=== PATIENT | male | born 1950 | race Caucasian/White ===

== ENCOUNTER 2018-10-26 13:26 | Inpatient (IN) | payer BC, OTHER ==
[2018-10-26 13:32] VITALS: BMI 26.6
--- NOTE | 2018-10-26 13:47 | PDOC ---
History of Present Illness - General Chief Complaint: Pain, Acute Stated Complaint: ABDOMINAL PAIN Time Seen by Provider: 10/26/18 13:46 History Source: Patient Exam Limitations: No Limitations Past History - Past Medical History Allergies/Adverse Reactions: Allergies Allergy/AdvReac Type Severity Reaction Status Date / Time No Known Allergies Allergy Verified 10/26/18 13:29 Home Medications: Ambulatory Orders Nebivolol HCl [Bystolic] 10 mg PO DAILY 10/26/18 Simvastatin 5 mg PO DAILY 10/26/18 COPD: No Diabetes: Yes (PRE- DIABETIC) HTN: Yes Hypercholesterolemia: Yes - Immunization History Immunization Up to Date: Yes - Suicide/Smoking/Psychosocial Hx Smoking History: Never smoked Hx Alcohol Use: No Drug/Substance Use Hx: No *Physical Exam - Vital Signs Last Vital Signs Temp Pulse Resp BP Pulse Ox 98.2 F 97 H 17 145/91 98 10/26/18 13:30 10/26/18 13:30 10/26/18 13:30 10/26/18 13:30 10/26/18 13:30 Moderate Sedation - Procedure Monitoring Vital Signs: Procedure Monitoring Vital Signs Temperature 98.2 F 10/26/18 13:30 Pulse Rate 97 H 10/26/18 13:30 Respiratory Rate 17 10/26/18 13:30 Blood Pressure 145/91 10/26/18 13:30 O2 Sat by Pulse Oximetry (%) 98 10/26/18 13:30 ED Treatment Course - LABORATORY CBC & Chemistry Diagram: 10/26/18 14:39 10/26/18 14:39 Medical Decision Making - Medical Decision Making Pt was seen at bedside, also will be seen by attending Dr. Lopez. Pt presenting with epigastric pain x5 days. Pt states the pain is a burning sensation that has been fairly constant, and is sometimes sharp. The pain is non -radiating, and is not associated with nausea, vomiting, or diaphoresis. The pt has not been able to eat and has had minimal PO fluid intake, for fear of pain and nausea. Pt states prior to the pain, he did eat a spicy dinner and had a glass of alcohol. He has had reflux and "ulcers" in the past (no endoscopy ever done), but the pain was relieved with bowel rest and OTC PPIs. The pt went to Urgent Care 2 days ago, and was told to take OTC prilosec and avoid spicy foods. The pt has had to lie upright at night, and has not been able to sleep last night. Pt denies any fevers/chills, headache, vision changes, syncope, chest pain, palpitations, SOB, nausea/vomiting, urinary symptoms, diarrhea/ constipation, or leg swelling. Vitals stable, pt afebrile. Pt in NAD, normal body habitus. PE showed pt alert and oriented. manager latin generally intact, muscular strength and sensation intact. Oropharynx without erythema or exudates. No nasal congestion, hearing intact. Clear heart sounds, S1/S2, no JVD, b/l pedal edema, or heart murmur. Clear lung sounds, no respiratory distress, wheezes, crackles, accessory muscle use, or respiratory distress. Abdominal tenderness noted in the epigastric area only, no CVA tenderness to palpation, no rebound, no guarding. Abdomen soft, non- distended, and with normoactive bowel sounds. Skin without jaundice or rash. Considering acid reflux/gastritis vs ulcers/esophagitis (gastric vs duodenal) vs cholecystitis vs pancreatitis vs ACS Ordered work-up including CBC, CMP, Mg, lipase,. Provided [interventions/meds] for improvement of [pain/symptom control]. Will continue to reassess pt and monitor for symptomatic improvement. ECG: NSR, intervals WNL. No TWIs or significant ST segment changes. No significant changes from prior ECG. 10/26/18 14:31 Pt stated pain initially improved, but now persists. Provided 40 mg IV protonix. Pt had increased WBC (15.2). Added UA and chest x-ray. Bedside US (performed with Dr. Lopez): Pt was taken to abdomen US (r/o obstructing stone). Pt will go to abd/pelvis CT with IV contrast after US. 10/26/18 18:30 CT abd/pelvis: cholecystitis, with a stone at the neck of the gallbladder. GB wall thickened. Upper pole cyst R kidney. No urinary or GI tract obstruction. US: fatty infiltration of liver. GB wall thickening. GB sludge. CBD nondilated. Dr. Hdez (general surgery) consulted. Suggested admission, NPO, and antibiotics. Covering pt with 4.5 mg IV zosyn for antibiotic coverage. Providing 2 mg IV morphine for pain. Pt was admitted to hospitalist team (med/sug -- Dr. Bhatia). Will reassess for pain and comfort. 10/26/18 19:37 *DC/Admit/Observation/Transfer Diagnosis at time of Disposition: Cholecystitis - Discharge Dispostion Condition at time of disposition: Stable Decision to Admit order: Yes - Referrals - Patient Instructions - Post Discharge Activity
[2018-10-26] MEDS ORDERED: SODIUM CHLORIDE 1,000 ML IV STA (14:15)
[2018-10-26] MEDS ORDERED: ACETAMINOPHEN 1000 MG/100 ML VIAL (NON FORMULARY) IVPB ONE (14:15)
[2018-10-26] MEDS ORDERED: FAMOTIDINE 20 MG/50 ML IVPB 20 MG/50 ML MG IVPB ONE ×2 (14:15→14:21)
[2018-10-26] MEDS ORDERED: LIDOCAINE VISCOUS 2% ORAL/TOP 20 ML UNIT-DOSE CUP MM ONE (14:15)
[2018-10-26] MEDS ORDERED: MAG HYDROX/AL HYDROX/SIMETH 30 ML UNIT-DOSE CUP PO ONE (14:15)
[2018-10-26] MEDS ORDERED: MAG HYDROX/AL HYDROX/SIMETH 30 ML UNIT-DOSE CUP ONE (14:21)
[2018-10-26] MEDS ORDERED: ACETAMINOPHEN INJECTION 100 ML IVPB ONE (14:21)
[2018-10-26 14:51] LABS: BASO % 0.5 % (0-2.0); HEMATOCRIT 44.8 % (35.4-49); HEMOGLOBIN 15.3 GM/dL (11.7-16.9); LYMPH % 3.7 % (8-40); MCH 29.5 pg (25.7-33.7); MCHC 34.2 g/dl (32.0-35.9); MEAN CELL VOLUME 86.3 fl (80-96); MEAN PLT VOLUME 8.9 fl (7.5-11.1); MONO % 9.7 % (3.8-10.2); NEUT % 86.1 % (42.8-82.8); PLATELET COUNT 209 K/MM3 (134-434); RBC 5.19 M/mm3 (4.00-5.60); RDW 12.7 % (11.9-15.9); WHITE BLOOD COUNT 15.2 K/mm3 (4.0-10.0)
[2018-10-26 15:14] LABS: ALK PHOS 81 U/L (45-117); ANION GAP 5 MMOL/L (8-16); BILIRUBIN,TOTAL 1.7 mg/dL (0.2-1); BLOOD UREA NITROGEN 16 mg/dL (7-18); CALCIUM 9.3 mg/dL (8.5-10.1); CHLORIDE 99 mmol/L (98-107); CO2 31 mmol/L (21-32); GLUCOSE,RANDOM 136 mg/dL (74-106); SGOT/AST 23 U/L (15-37); SGPT/ALT 21 U/L (13-61); SODIUM 135 mmol/L (136-145); TOT PROT 7.1 g/dl (6.4-8.2)
[2018-10-26 15:24] LABS: INR 1.11 (0.83-1.09); PROTHROMBIN TIME (PATIENT) 13.1 SEC (9.7-13.0)
[2018-10-26] MEDS ORDERED: PANTOPRAZOLE SODIUM 40 MG VIAL IVPUSH ONE (15:34)
[2018-10-26 15:40] LABS: URINE APPEARANCE CLEAR; URINE BILIRUBIN NEGATIVE (<2.0 mg/dL); URINE COLOR YELLOW; URINE GLUCOSE (UA) NEGATIVE (NEGATIVE); URINE KETONE TRACE (NEGATIVE); URINE LEUK ESTERASE NEGATIVE (NEGATIVE); URINE NITRITE NEGATIVE (NEGATIVE); URINE PROTEIN 2+ (NEGATIVE)
[2018-10-26] MEDS ORDERED: PANTOPRAZOLE SODIUM 40 MG/100 ML BAG IVPB ONE (15:44)
[2018-10-26 16:36] LABS: URINE MUCUS RARE
--- NOTE | 2018-10-26 16:37 | PDOC ---
Attending Attestation - Resident Resident Name: KokoFelecia - ED Attending Attestation I have performed the following: I have examined & evaluated the patient, The case was reviewed & discussed with the resident, I agree w/resident's findings & plan, Exceptions are as noted - Medical Decision Making 10/26/18 17:55 68 yo male with h/o htn, hyperlipidemia, here with 3 - 4 days of epigastric pain. described as burning with occasional sharp component. was seen at urgent care few days ago given protonix, no improvement. denies fever, does have chills. nausea, no vomiting. no known ho stones. no change to urine or diarreha. on exam pt with mild epigastric ruq ttp. no rebound no guarding neg carroll's sign differential: gastritis, pancreatitis. atypical angina, cholecystitis, cholelithiasis. plan labs ekg lipase, bedside us ruq, focused ED ultrasound RUQ performed, indication ruq pain gb scanned in two planes. two stones noted, one impacted in neck gb. cbd not visualized. noted pericholecystic fluid . wall edema, mild wall thickening 4.1 mm neg sonographic carroll's sign impression: pericholecystic fluid, wall edema and upper limits normal, early cholecystitis vs other causes of wall edema such as liver disease considered. bilateral renal scanned, incidental right renal cyst measuring 4x [address] a/p as pt also has hematuria. fu ct ordered. bili elevated. wbc elevated at 15, ua with hematuria. renal function normal. lipase normal. 10/26/18 18:01 10/26/18 18:03 10/26/18 18:51 surgery consulted for cholecystitis, awaiting radiology us read but concerns for cholecysitits. left message for dr mendoza and pag service. given nikkosyn will admit pt to medicine. <Leola Lopez - Last Filed: 10/26/18 18:51> - HPI HPI: 10/26/18 16:37 The patient is a 68 year old male with past medical history HTN, HLD, and Hernia repair (when the patient was a kid) presents to the emergency department with epigastric pain. The patient presents with several days of severe localized , constant epigastric pain, thats burning in quality, since earlier this week. The patient reports the pain presented after having spicy food and alcohol. The patient denies any modifying factor that alleviates or aggravated the pain. The patient reports secondary to the pain, the patient sleep up right at night. The patient reports following up at an , was seen by Dr. Bucio, who prescribed the patient protonix. The patient reports being compliant, without relief. Denies fever, chills, nausea, vomiting, hematemesis, dysuria, hematuria, diarrhea, constipation. Allergies: NKA Social history: Alcohol use. No tobacco use reported. No drug use reported Surgical history: Hernia repair. PCP: Dr. Bucio. - Medical Decision Making 10/26/18 16:37 Documentation prepared by Jayne Prieto, acting as medical office receptionist assistant for Leola Lopez MD. 10/26/18 18:43 Phone call: Call placed to Dr. Mendoza (inspector [employer] for Surgery, [phone]), left a voicemail, waiting for a call back. 10/26/18 18:[address] Mendoza's office, spoke with the service, waiting for a call back. 10/26/18 18:[address] Mendoza. <Jayne Prieto - Last Filed: 10/26/18 18:55> Heart Score/ECG Review #1 General ECG Interpretation: Sinus Rhythm, Normal Rate, Normal Intervals, No acute ischemic changes (TWI III, AVF) <Leola Lopez - Last Filed: 10/26/18 18:51>
[2018-10-26] MEDS ORDERED: SODIUM CHLORIDE 0.9% 1000 ML INFUS.BAG IV ONE (18:41)
[2018-10-26] MEDS ORDERED: PIPERACILLIN/TAZOB 4.5 GM 4.5 GM in DEXTROSE 5%-WATER 100 ML IVPB ONE (19:19)
[2018-10-26] MEDS ORDERED: morphine CARPU-JECT 2 MG/1 ML DISP.SYRIN IVPUSH PRN (19:21)
[2018-10-26] MEDS ORDERED: PIPERACILLIN/TAZOB 4.5 GM 4.5 GM/100 ML BAG IVPB ONE (19:36)
[2018-10-26] MEDS: LACTATED RINGERS SOLUTION 1,000 ML IV SCH (19:47)
[2018-10-26] MEDS ORDERED: IBUPROFEN 600 MG TABLET (FP) PO PRN (20:00)
[2018-10-26] MEDS ORDERED: IBUPROFEN 600 MG TABLET (FP) PO ONE (20:31)
[2018-10-26] MEDS ORDERED: ACETAMINOPHEN 325 MG TABLET (FP) ONE (20:35)
[2018-10-26] MEDS: ACETAMINOPHEN 325 MG TABLET (FP) PO PRN (20:39)
--- NOTE | 2018-10-26 20:47 | HP ---
CHIEF COMPLAINT: epigastric abdominal pain PCP: not on service HISTORY OF PRESENT ILLNESS: 68 year old male with a hx of hyperlipidemia and hypertension presents to the hospital for 4 days of epigastric pain. Patient reports the pain began suddenly on Sunday and gradually became worse. Rates the pain as a stabbing pain in the mid to right epigastrum that does not radiate. Is not associated with food. Denies ever having that pain before. States that he went to urgent care, was given protonix for an "ulcer", which did not make him feel any better. Denies chest pain, SOB, nausea, vomiting, diarrhea, fevers, chills. ER course was notable for: (1) CT + acute cholecystitis (2) US done (3) PAST MEDICAL HISTORY: hyperlipidemia, hypertension PAST SURGICAL HISTORY: hernia repair when patient was 7 Social History: Smoking: never Alcohol: never Drugs: never Family History: breast CA in mother, lung CA in father Allergies No Known Allergies Allergy (Verified 10/26/18 13:29) HOME MEDICATIONS: Home Medications Medication Instructions Recorded Nebivolol HCl [Bystolic] 10 mg PO DAILY 10/26/18 Simvastatin 5 mg PO DAILY 10/26/18 REVIEW OF SYSTEMS CONSTITUTIONAL: Absent: fever, chills, diaphoresis, generalized weakness, malaise, loss of appetite, weight change HEENT: Absent: rhinorrhea, nasal congestion, throat pain, throat swelling, difficulty swallowing, mouth swelling, ear pain, eye pain, visual changes CARDIOVASCULAR: Absent: chest pain, syncope, palpitations, irregular heart rate, lightheadedness , peripheral edema RESPIRATORY: Absent: cough, shortness of breath, dyspnea with exertion, orthopnea, wheezing, stridor, hemoptysis GASTROINTESTINAL: abdominal pain Absent: abdominal distension, nausea, vomiting, diarrhea, constipation, melena , hematochezia GENITOURINARY: Absent: dysuria, frequency, urgency, hesitancy, hematuria, flank pain, genital pain MUSCULOSKELETAL: Absent: myalgia, arthralgia, joint swelling, back pain, neck pain SKIN: Absent: rash, itching, pallor HEMATOLOGIC/IMMUNOLOGIC: Absent: easy bleeding, easy bruising, lymphadenopathy, frequent infections ENDOCRINE: Absent: unexplained weight gain, unexplained weight loss, heat intolerance, cold intolerance NEUROLOGIC: Absent: headache, focal weakness or paresthesias, dizziness, unsteady gait, seizure, mental status changes, bladder or bowel incontinence PSYCHIATRIC: Absent: anxiety, depression, suicidal or homicidal ideation, hallucinations. PHYSICAL EXAMINATION Vital Signs - 24 hr 10/26/18 13:30 Temperature 98.2 F Pulse Rate 97 H Respiratory 17 Rate Blood Pressure 145/91 O2 Sat by Pulse 98 Oximetry (%) GENERAL: A&Ox3, no acute distress EYES: PERRLA, EOMI ENT: Moist mucus membranes NECK: No JVD LUNGS: CTA, no wheezes HEART: RRR, no murmurs ABDOMEN: Soft, BS present, tender to palpation in the RUQ and RLQ, carroll sign + MUSCULOSKELETAL: No CVA Tenderness EXTREMITIES: 2+ pulses, no edema. NEUROLOGICAL: Cranial nerves II-XII intact. Laboratory Results - last 24 hr 10/26/18 10/26/18 10/26/18 14:39 14:39 14:39 WBC 15.2 H RBC 5.19 Hgb 15.3 Hct 44.8 MCV 86.3 MCH 29.5 MCHC 34.2 RDW 12.7 Plt Count 209 MPV 8.9 Absolute Neuts (auto) 13.1 H Neutrophils % 86.1 H Lymphocytes % 3.7 L Monocytes % 9.7 Eosinophils % 0.0 Basophils % 0.5 Nucleated RBC % 0 PT with INR 13.10 H INR 1.11 H Sodium 135 L Potassium 4.0 Chloride 99 Carbon Dioxide 31 Anion Gap 5 L BUN 16 Creatinine 1.0 Creat Clearance w eGFR > 60 Random Glucose 136 H Calcium 9.3 Magnesium Total Bilirubin 1.7 H AST 23 ALT 21 Alkaline Phosphatase 81 Troponin I Total Protein 7.1 Albumin 4.0 Lipase Urine Color Urine Appearance Urine pH Ur Specific Delight Urine Protein Urine Glucose (UA) Urine Ketones Urine Blood Urine Nitrite Urine Bilirubin Urine Urobilinogen Ur Leukocyte Esterase Urine WBC (Auto) Urine RBC (Auto) Urine Mucus 10/26/18 10/26/18 10/26/18 14:39 14:39 15:30 WBC RBC Hgb Hct MCV MCH MCHC RDW Plt Count MPV Absolute Neuts (auto) Neutrophils % Lymphocytes % Monocytes % Eosinophils % Basophils % Nucleated RBC % PT with INR INR Sodium Potassium Chloride Carbon Dioxide Anion Gap BUN Creatinine Creat Clearance w eGFR Random Glucose Calcium Magnesium 2.0 Total Bilirubin AST ALT Alkaline Phosphatase Troponin I < 0.02 Total Protein Albumin Lipase 173 Urine Color Yellow Urine Appearance Clear Urine pH 7.0 Ur Specific Delight 1.024 Urine Protein 2+ H Urine Glucose (UA) Negative Urine Ketones Trace H Urine Blood 2+ H Urine Nitrite Negative Urine Bilirubin Negative Urine Urobilinogen 2.0 Ur Leukocyte Esterase Negative Urine WBC (Auto) 2 Urine RBC (Auto) 137 Urine Mucus Rare ASSESSMENT/PLAN: 68 yr old male with a hx of HTN, HLD presents for 5 day hx of abdominal pain and is admitted for the treatment of acute cholecystitis #Abdominal pain: 2/2 acute cholecystitis -CT abd/pelvis shows gallstone and acute cholecystitis, renal cyst -US done -surgery consulted Dr. Hdez -keep NPO except meds -LR @ 100cc/hr -zosyn 3.375 q6 -tylenol/morphine for pain control #Hypertension: patient BP 145/91 -patient on nadolol at home but does not remember home dose, will confirm with [facility] in the morning #Hyperlipidemia: chronic -patient on simvastatin at home, does not remember dose and will need to confirm in AM #FEN -LR @ 100cc/hr -NPO except meds -lytes wnl, recheck in AM #Prophylaxis -SCDs for now pending surgery #Disposition -admit med surg, will be evaluated by surg in AM Visit type - Emergency Visit Emergency Visit: Yes ED Registration Date: 10/26/18 Care time: The patient presented to the Emergency Department on the above date and was hospitalized for further evaluation of their emergent condition. - New Patient This patient is new to me today: Yes Date on this admission: 10/26/18 - Critical Care Critical Care patient: No
--- NOTE | 2018-10-26 21:38 | PN ---
Teaching Attending Note Name of Resident: Puneet Calle ATTENDING PHYSICIAN STATEMENT I saw and evaluated the patient. I reviewed the resident's note and discussed the case with the resident. I agree with the resident's findings and plan as documented. SUBJECTIVE: Seen and examined; please see resident note for further hsitorical information. Patient has a history of HTN on bystolic HLD on simva presents with several days of abdominal pain associated with anorexia and nausea. Nothing makes it better or worse, hasn't happened before, no prior abdominal sgy. Leukocytosis seen on labs with elevated bili. Seen to have GB wall thickening with suspicion of cholecystitis. Dr. Hdez spoke with ER; I am told he recommended zosyn and admission to medicine; appreciate expert opinion. Hemodynamically stable and afebrile. 10 sys ROS done and negative aside from HPI PMH, PSH, FH, Social Hx per resident note; reviewed Medication reconciliation reviewed; reconciliation pending OBJECTIVE: VS, labs, imaging reviewed NAD, AAO, resting comfortably in bed RUQ pain to palpation with negative murphys and slight tympany RRR s1/2 no mgr Lungs CTAB w/ sym exp CN2-12 wnl, no fnd Normal mood, appropriate affect Prelim reports reviewed CT/US; suspect cholecystitis. Followup the final reports Negative lipase ASSESSMENT AND PLAN: Presents with abdominal pain and leukocytosis with elevated bili; found to have findings suspicious for cholecystitis on US/CT. Dr. Hdez following. 1) Acute Cholecystitis -Continue IVF, NPO, broad spectrum abx as rec'd; consult ID if needed -Surgical eval -Pain control -Followup cultures, serial abdominal exams. Would be noncomplicated cholecystitis. 2) Elevated Bilirubin -Fractionate; trend CMP. May be related to #1. 3) HTN -Hold PO meds; prn. Monitor for BB WD. 4) HLD -FU lipids as OP; resume statin when taking PO FENA -LR@75 -PRN replete -NPO -As tolerated Full Code
[2018-10-27] MEDS: PIPERACILLIN/TAZOB 3.375 GM 3.375 GM in DEXTROSE 5%-WATER - 50 ML IVPB SCH ×3 (04:00→15:54)
[2018-10-27] MEDS ORDERED: DEXTROSE 5%-WATER - 50 ML IVPB ONE ×3 (04:31→15:48)
[2018-10-27] MEDS ORDERED: PIPERACILLIN/TAZOBACTAM 3.375 GM VIAL IVPB ONE ×3 (04:31→15:48)
[2018-10-27] MEDS: MORPHINE SULFATE 2 MG/ML VIAL IVPUSH PRN ×3 (05:13→21:15)
[2018-10-27 07:05] LABS: HEMATOCRIT 38.8 % (35.4-49); HEMOGLOBIN 13.6 GM/dL (11.7-16.9); MEAN CELL VOLUME 85.6 fl (80-96); MEAN PLT VOLUME 9.8 fl (7.5-11.1); PLATELET COUNT 182 K/MM3 (134-434); RBC 4.54 M/mm3 (4.00-5.60); RDW 12.9 % (11.9-15.9); WHITE BLOOD COUNT 12.9 K/mm3 (4.0-10.0)
[2018-10-27 07:44] LABS: ALBUMIN 3.1 g/dl (3.4-5.0); ALK PHOS 64 U/L (45-117); ANION GAP 9 MMOL/L (8-16); BILIRUBIN,TOTAL 2.2 mg/dL (0.2-1); BLOOD UREA NITROGEN 14 mg/dL (7-18); CALCIUM 8.2 mg/dL (8.5-10.1); CHLORIDE 102 mmol/L (98-107); CO2 27 mmol/L (21-32); GLUCOSE,RANDOM 113 mg/dL (74-106); MAGNESIUM 1.9 mg/dL (1.8-2.4); PHOSPHOROUS 2.7 mg/dL (2.5-4.9); POTASSIUM 3.8 mmol/L (3.5-5.1); SGOT/AST 23 U/L (15-37); SGPT/ALT 18 U/L (13-61); SODIUM 138 mmol/L (136-145); TOT PROT 5.7 g/dl (6.4-8.2)
--- NOTE | 2018-10-27 11:20 | EKG ---
Test Reason : Blood Pressure : / mmHG Vent. Rate : 087 BPM Atrial Rate : 087 BPM P-R Int : 148 ms QRS Dur : 114 ms QT Int : 396 ms P-R-T Axes : 035 -37 -10 degrees QTc Int : 476 ms NORMAL SINUS RHYTHM LEFT AXIS DEVIATION MINIMAL VOLTAGE CRITERIA FOR LVH, MAY BE NORMAL VARIANT ABNORMAL ECG NO PREVIOUS ECGS AVAILABLE Confirmed by ASHLEIGH SHETH MD ([id number]) on 10/27/2018 11:20:24 AM Referred By: Confirmed By:ASHLEIGH SHETH MD
--- NOTE | 2018-10-27 11:44 | PN ---
Progress Note, Physician Chief Complaint: Mr Zayas complains of RUQ abdominal pain when taking deep breaths. No cp or sob. - Current Medication List Current Medications: Active Medications Acetaminophen (Tylenol -) 650 mg PO Q4H PRN PRN Reason: PAIN LEVEL 6-10 Last Admin: 10/26/18 20:39 Dose: 650 mg Lactated Ringer's (Lactated Ringers Solution) 1,000 mls @ 100 mls/hr IV ASDIR JUAN MANUEL Stop: 10/28/18 05:29 Last Admin: 10/26/18 19:47 Dose: 100 mls/hr Piperacillin Sod/Tazobactam (Sod 3.375 gm/ Dextrose) 50 mls @ 100 mls/hr IVPB Q6H-IV JUAN MANUEL; Protocol Stop: 10/27/18 15:29 Last Admin: 10/27/18 08:33 Dose: 100 mls/hr Piperacillin Sod/Tazobactam (Sod 3.375 gm/ Dextrose) 50 mls @ 100 mls/hr IVPB Q6H-IV JUAN MANUEL Morphine Sulfate (Morphine Sulfate) 2 mg IVPUSH Q4H PRN PRN Reason: PAIN LEVEL 7 - 10 Last Admin: 10/27/18 05:13 Dose: 2 mg - Objective Vital Signs: Vital Signs Temperature 37.2 C 10/27/18 06:00 Pulse Rate 98 H 10/27/18 06:00 Respiratory Rate 18 10/27/18 06:00 Blood Pressure 161/78 10/27/18 06:00 O2 Sat by Pulse Oximetry (%) 98 10/26/18 22:00 Constitutional: Yes: Well Nourished, No Distress, Calm Cardiovascular: Yes: Regular Rate and Rhythm. No: Gallop, Murmur, Rub Respiratory: Yes: Regular, CTA Bilaterally. No: Rales, Rhonchi, Wheezes Gastrointestinal: Yes: Soft, Hypoactive Bowel Sounds, Tenderness (RUQ). No: Distention Extremities: Yes: WNL Edema: No Labs: CBC, BMP 10/27/18 06:30 10/27/18 06:30 INR, PTT INR 1.11 (0.83-1.09) H 10/26/18 14:39 Problem List - Problems (1) Cholecystitis Assessment/Plan: -case d/w Dr Hdez -change zosyn to rocephin -plan for lap alexandru tomorrow -change LR to D5 1/2 NS with 40mEq KCl since now on rocephin Code(s): K81.9 - CHOLECYSTITIS, UNSPECIFIED (2) HTN (hypertension) Assessment/Plan: -currently npo -monitor -may need IV metoprolol or hydralazine if gets too high Code(s): I10 - ESSENTIAL (PRIMARY) HYPERTENSION (3) HLD (hyperlipidemia) Assessment/Plan: -can restart outpatient medication on discharge Code(s): E78.5 - HYPERLIPIDEMIA, UNSPECIFIED
--- NOTE | 2018-10-27 11:46 | CONSULT ---
- Consultation REQUESTING PROVIDER: Kenan HE CONSULT REQUEST: We have been asked to surgically evaluate this patient for nausea/vomiting and RUQ abdominal pain brought on after eating; he came for evaluation and w/u in the ER is c/w acute cholecystitis and cholelithiasis. PCP:Jean Grayson MD HISTORY OF PRESENT ILLNESS: As above; he has never had this before. PMHx: hypertension PSHx: none Home Medications Medication Instructions Recorded Nebivolol HCl [Bystolic] 10 mg PO DAILY 10/26/18 Simvastatin 5 mg PO DAILY 10/26/18 Allergies Allergy/AdvReac Type Severity Reaction Status Date / Time No Known Allergies Allergy Verified 10/26/18 13:29 PHYSICAL EXAM: GENERAL: Awake, alert, and fully oriented, in no acute distress. HEAD: Normal with no signs of trauma. EYES: sclera anicteric, conjunctiva clear. NECK: Normal ROM, supple without lymphadenopathy, JVD, or masses. ABDOMEN: Soft, tender in RUQ not distended, normoactive bowel sounds, voluntary guarding, no rebound, no masses. No organomegaly. No hernias MUSCULOSKELETAL: Normal ROM at all joints. No bony deformities or tenderness. No CVA tenderness. UPPER EXTREMITIES: 2+ pulses, warm, well-perfused. No cyanosis. Cap refill <2 seconds. No peripheral edema. LOWER EXTREMITIES: 2+ pulses, warm, well-perfused. No calf tenderness. No peripheral edema. NEUROLOGICAL: Normal speech, gait not observed. PSYCH: Cooperative. Good eye contact. Appropriate mood and affect. SKIN: Warm, dry, normal turgor, no rashes or lesions noted. Vital Signs Temperature 99.0 F 10/27/18 06:00 Pulse Rate 98 H 10/27/18 06:00 Respiratory Rate 18 10/27/18 06:00 Blood Pressure 161/78 10/27/18 06:00 O2 Sat by Pulse Oximetry (%) 98 10/26/18 22:00 Lab Results WBC 12.9 K/mm3 (4.0-10.0) H 10/27/18 06:30 RBC 4.54 M/mm3 (4.00-5.60) 10/27/18 06:30 Hgb 13.6 GM/dL (11.7-16.9) 10/27/18 06:30 Hct 38.8 % (35.4-49) 10/27/18 06:30 MCV 85.6 fl (80-96) 10/27/18 06:30 MCHC 35.0 g/dl (32.0-35.9) 10/27/18 06:30 RDW 12.9 % (11.9-15.9) 10/27/18 06:30 Plt Count 182 K/MM3 (134-434) 10/27/18 06:30 Sodium 138 mmol/L (136-145) 10/27/18 06:30 Potassium 3.8 mmol/L (3.5-5.1) 10/27/18 06:30 Chloride 102 mmol/L (98-107) 10/27/18 06:30 Carbon Dioxide 27 mmol/L (21-32) 10/27/18 06:30 Anion Gap 9 MMOL/L (8-16) 10/27/18 06:30 BUN 14 mg/dL (7-18) 10/27/18 06:30 Creatinine 1.0 mg/dL (0.55-1.3) 10/27/18 06:30 Random Glucose 113 mg/dL (74-106) H 10/27/18 06:30 Calcium 8.2 mg/dL (8.5-10.1) L 10/27/18 06:30 INR 1.11 (0.83-1.09) H 10/26/18 14:39 Imaging w/u to date reviewed and c/w acute cholecystitis/cholelithiasis IMP: acute cholecystitis/cholelithiasis PLAN: lap alexandru; possible open; r/b/t/a's d/w the patient includ/ing conversion to an open procedure and possible procedures for retained stones; bile duct injury and related; informed consent obtained; for OR 10/28/18. Javier Hdez MD FACS
[2018-10-27] MEDS: ACETAMINOPHEN 325 MG TABLET (FP) PO PRN (13:36)
[2018-10-27] MEDS: LACTATED RINGERS SOLUTION 1,000 ML IV SCH ×2 (15:55→21:15)
[2018-10-27] MEDS ORDERED: D5-1/2NS+40 MEQ KCL - 40 MEQ/1,000 ML INFUS.BAG IV SCH (18:15)
[2018-10-27] MEDS ORDERED: PIPERACILLIN/TAZOB 3.375 GM 3.375 GM in DEXTROSE 5%-WATER - 50 ML IVPB SCH (21:00)
[2018-10-28] MEDS: ACETAMINOPHEN 325 MG TABLET (FP) PO PRN (02:42)
[2018-10-28] MEDS ORDERED: fentaNYL CITRATE 250 MCG/5 ML VIAL ONE (07:54)
[2018-10-28] MEDS ORDERED: MIDAZOLAM HCL 2 MG/2 ML SINGLE DOSE VIAL ONE (07:55)
[2018-10-28] MEDS ORDERED: PROPOFOL 20 ML ONE (07:55)
[2018-10-28] MEDS ORDERED: SUCCINYLCHOLINE CHLORIDE 200 MG/10 ML VIAL ONE (07:55)
[2018-10-28] MEDS ORDERED: ROCURONIUM BROMIDE 50 MG/5 ML VIAL ONE (07:55)
[2018-10-28] MEDS ORDERED: LIDOCAINE HCL/PF 2% SDV 5ML VIAL ONE (08:01)
[2018-10-28] MEDS ORDERED: DEXAMETHASONE SOD PHOSPHATE 4 MG/1 ML VIAL ONE (08:01)
[2018-10-28 08:03] LABS: ALBUMIN 2.9 g/dl (3.4-5.0); ALK PHOS 74 U/L (45-117); ANION GAP 7 MMOL/L (8-16); BILIRUBIN,TOTAL 1.5 mg/dL (0.2-1); BLOOD UREA NITROGEN 14 mg/dL (7-18); CALCIUM 8.5 mg/dL (8.5-10.1); CHLORIDE 103 mmol/L (98-107); CO2 27 mmol/L (21-32); CREATININE 0.9 mg/dL (0.55-1.3); GLUCOSE,RANDOM 92 mg/dL (74-106); MAGNESIUM 2.3 mg/dL (1.8-2.4); PHOSPHOROUS 2.5 mg/dL (2.5-4.9); SGOT/AST 35 U/L (15-37); SGPT/ALT 22 U/L (13-61); SODIUM 137 mmol/L (136-145); TOT PROT 5.8 g/dl (6.4-8.2)
[2018-10-28] MEDS ORDERED: DESFLURANE GAS 240 ML BOTTLE IH ONE (08:04)
[2018-10-28] MEDS ORDERED: BUPIVACAINE HCL/PF 0.5% (5MG/ML) 10 ML VIAL ONE (08:07)
[2018-10-28 08:14] LABS: BASO % 0.5 % (0-2.0); EOS % 0.1 % (0-4.5); HEMATOCRIT 39.7 % (35.4-49); HEMOGLOBIN 13.8 GM/dL (11.7-16.9); LYMPH % 7.5 % (8-40); MCHC 34.7 g/dl (32.0-35.9); MEAN CELL VOLUME 86.4 fl (80-96); MEAN PLT VOLUME 9.9 fl (7.5-11.1); MONO % 9.4 % (3.8-10.2); NEUT % 82.5 % (42.8-82.8); PLATELET COUNT 166 K/MM3 (134-434); RBC 4.59 M/mm3 (4.00-5.60); WHITE BLOOD COUNT 11.9 K/mm3 (4.0-10.0)
[2018-10-28] MEDS ORDERED: LIDOCAINE HCL 1%, 10 MG/ML (20ML VIAL) ONE (08:30)
[2018-10-28] MEDS ORDERED: METOPROLOL TARTRATE 5 MG/5 ML VIAL ONE (09:10)
[2018-10-28] MEDS ORDERED: LIDOCAINE HCL 1%, 10 MG/ML (20ML VIAL) NR ONE ×2 (09:20→10:53)
[2018-10-28] MEDS ORDERED: cefTRIAXone SODIUM 1 GM VIAL IVPB ONE (09:20)
[2018-10-28] MEDS ORDERED: BUPIVACAINE HCL/PF (5 MG/ML) 30 ML VIAL IJ ONE ×2 (09:21→10:53)
[2018-10-28] MEDS ORDERED: CEFTRIAXONE 1 GM in DEXTROSE 5%-WATER - 50 ML IVPB SCH (10:00)
[2018-10-28] MEDS ORDERED: GLYCOPYRROLATE 0.2 MG/1 ML VIAL ONE (10:16)
[2018-10-28] MEDS ORDERED: NEOSTIGMINE METHYLSULFATE 0.5 MG/ML - 10 ML MDV ONE (10:16)
[2018-10-28] MEDS ORDERED: oxyCODONE HCL 5 MG TABLET PO PRN ×2 (11:30)
[2018-10-28] MEDS ORDERED: MORPHINE SULFATE 2 MG/ML VIAL IVPUSH PRN (11:30)
[2018-10-28] MEDS ORDERED: ACETAMINOPHEN 325 MG TABLET (FP) PO PRN (11:39)
--- NOTE | 2018-10-28 11:47 | OP ---
Operative Note - Note: Operative Date: 10/28/18 Pre-Operative Diagnosis: acute cholecystitis/cholelithiasis Operation: laparoscopic cholecystectomy Post-Operative Diagnosis: Same as Pre-op Surgeon: Javier Hdez Fish Agent: Cici Nicholson Anesthesiologist/VEGETABLE PACKER: Darren Stanley Anesthesia: General Specimens Removed: gallbladder Estimated Blood Loss (mls): 100 Drains & Tubes with Location: RAULITO RLQ Fluid Volume Replaced (mls): 1,000 Operative Report Dictated: Yes
--- NOTE | 2018-10-28 11:48 | SURG ---
Surgery Scientific Laboratory Supervisor Note Scientific Laboratory Supervisor: Cici Nicholson PA-C Date of Service: 10/28/18 Diagnosis: acute cholecystitis/cholelithiasis Procedure: laparoscopic cholecystectomy I was present for the entirety of the operative procedure. For further detail, please refer to operative report. Visit type - Case Type Case Type: ED Admission - Emergency Emergency Visit: Yes ED Registration Date: 10/26/18 Care time: The patient presented to the Emergency Department on the above date and was hospitalized for further evaluation of their emergent condition. - New patient This patient is new to me today: Yes Date on this admission: 10/28/18
[2018-10-28] MEDS ORDERED: ONDANSETRON 4 MG/2 ML VIAL IVPUSH PRN (12:12)
--- NOTE | 2018-10-28 13:10 | OP ---
DATE OF OPERATION: 10/28/2018 PREOPERATIVE DIAGNOSIS: Acute cholecystitis and cholelithiasis. POSTOPERATIVE DIAGNOSIS: Gangrenous cholecystitis, hydrops of the gallbladder, and cholelithiasis. PROCEDURE: Laparoscopic cholecystectomy. SURGEON: Javier Hdez MD INTERNAL CORROSION SPECIALIST: Cici Nicholson PA-C. ANESTHESIA: General. OPERATIVE FINDINGS: There was hydrops of the gallbladder and possible gangrenous changes. There was cholelithiasis and the rest of his findings were unremarkable. PROCEDURE: The patient was placed on the operating table in the supine position and after the induction of general anesthesia the patient's abdomen was prepped with ChloraPrep and draped in sterile fashion. A timeout was taken and pneumoperitoneum established above the umbilicus using a Veress needle. Once 15 mmHg of pressure were obtained, a 5-mm port was placed at the umbilicus and additional lateral 5-mm ports and a subxiphoid 12-mm port. Laparoscopy was carried out and the previously noted findings were observed. Dissection was begun at the neck of the gallbladder where the peritoneum was opened medially and laterally using blunt dissection and electrocautery. The cystic duct was identified coursing from the neck of the gallbladder towards the common bile duct and it was dissected using blunt dissection proximally and distally for length. Similarly, the artery was identified and dissected proximally and distally for length. A critical view of safety was taken and then the duct and the artery were clipped twice proximally and twice distally with large hemoclips. The duct and artery were then serially divided using Endoshears. Hemostasis was checked for and noted to be good and then the gallbladder was removed from the liver bed in a retrograde fashion using electrocautery. Prior to removal from the edge of the liver, hemostasis in the liver bed was again checked for and noted to be good and then the gallbladder removed from the edge of the liver, placed in an EndoCatch , and brought out through the subxiphoid port. Pneumoperitoneum was reestablished. Copious irrigation was carried out with saline. Hemostasis was verified again. A 10-mm Jose-Yousif drain was placed in the right hepatorenal fossa and brought out through 1 of the 5-mm ports and secured to the skin with 2-0 silk suture. All port sites were removed under laparoscopic vision without evidence of bleeding from the port sites. The port sites were infiltrated with 0.5% Marcaine and the skin edges reapproximated with 4-0 Biosyn in a subcuticular continuous fashion. Steri-Strips and Band-Aid dressings were placed. The drain was connected to bulb suction and then the patient aroused from general anesthesia and transferred to the postanesthesia care unit in stable condition, awake and alert. ESTIMATED BLOOD LOSS: 100 mL. REPLACEMENT: Crystalloid. DRAINS: One 10-mm Jose-Yousif. SPECIMEN: Gallbladder and contents to Pathology. I, Javier Hdez, was physically present in the operating room from the time the patient was placed on the operating table until he was transferred to the postanesthesia care unit in [facility]. MD ANDRE Eldridge/[id number] MTDD
--- NOTE | 2018-10-28 13:38 | PN ---
Progress Note, Physician Chief Complaint: Mr Zayas is doing well post surgery. Denies cp, sob, n/v. Has some pain at the incision site but otherwise is without complaint. - Current Medication List Current Medications: Active Medications Acetaminophen (Tylenol -) 650 mg PO Q4H PRN PRN Reason: FEVER Fentanyl (Sublimaze Injection -) 50 mcg IVPUSH [id number] PRN PRN Reason: PAIN-PACU ORDER X 4 DOSES ONLY Ceftriaxone Sodium 1 gm/ (Dextrose) 50 mls @ 100 mls/hr IVPB DAILY JUAN MANUEL; Protocol Sodium Chloride (Normal Saline -) 1,000 mls @ 100 mls/hr IV ASDIR JUAN MANUEL Morphine Sulfate (Morphine Sulfate) 2 mg IVPUSH Q4H PRN PRN Reason: breakthrough Nebivolol (Bystolic -) 10 mg PO DAILY JUAN MANUEL Non-Formulary Medication (Simvastatin [Simvastatin]) 5 mg PO DAILY JUAN MANUEL Ondansetron HCl (Zofran Injection) 4 mg IVPUSH Q6H PRN PRN Reason: NAUSEA AND/OR VOMITING Oxycodone HCl (Roxicodone -) 5 mg PO Q4H PRN PRN Reason: PAIN LEVEL 1-5 Oxycodone HCl (Roxicodone -) 10 mg PO Q4H PRN PRN Reason: PAIN LEVEL 6-10 - Objective Vital Signs: Vital Signs Temperature 36.3 C L 10/28/18 12:35 Pulse Rate 72 10/28/18 12:35 Respiratory Rate 16 10/28/18 12:35 Blood Pressure 155/88 10/28/18 12:35 O2 Sat by Pulse Oximetry (%) 95 10/28/18 12:35 Constitutional: Yes: Well Nourished, No Distress, Calm Cardiovascular: Yes: Regular Rate and Rhythm. No: Gallop, Murmur, Rub Respiratory: Yes: Regular, CTA Bilaterally. No: Rales, Rhonchi, Wheezes Gastrointestinal: Yes: Normal Bowel Sounds, Soft. No: Distention, Tenderness Extremities: Yes: WNL Edema: No Labs: CBC, BMP 10/28/18 06:30 10/28/18 06:30 INR, PTT INR 1.11 (0.83-1.09) H 10/26/18 14:39 Problem List - Problems (1) Cholecystitis Code(s): K81.9 - CHOLECYSTITIS, UNSPECIFIED (2) HTN (hypertension) Code(s): I10 - ESSENTIAL (PRIMARY) HYPERTENSION (3) HLD (hyperlipidemia) Code(s): E78.5 - HYPERLIPIDEMIA, UNSPECIFIED Assessment/Plan (1) Cholecystitis Assessment/Plan: -s/p surgical intervention -doing well -continue IVF and rocephin -on clear liquid diet, advance per surgical recommendations -plan for discharge tomorrow, patient made aware Code(s): K81.9 - CHOLECYSTITIS, UNSPECIFIED (2) HTN (hypertension) Assessment/Plan: -restart home bystolic regimen Code(s): I10 - ESSENTIAL (PRIMARY) HYPERTENSION (3) HLD (hyperlipidemia) Assessment/Plan: -restart lipitor Code(s): E78.5 - HYPERLIPIDEMIA, UNSPECIFIED
[2018-10-28] MEDS: SODIUM CHLORIDE 1,000 ML IV SCH ×2 (17:36→22:45)
[2018-10-29 07:50] LABS: BASO % 0.1 % (0-2.0); HEMATOCRIT 36.9 % (35.4-49); HEMOGLOBIN 12.9 GM/dL (11.7-16.9); MCHC 34.8 g/dl (32.0-35.9); MEAN CELL VOLUME 86.2 fl (80-96); NEUT % 88.9 % (42.8-82.8); PLATELET COUNT 179 K/MM3 (134-434); RBC 4.29 M/mm3 (4.00-5.60); RDW 12.5 % (11.9-15.9); WHITE BLOOD COUNT 10.5 K/mm3 (4.0-10.0)
[2018-10-29 07:57] LABS: ANION GAP 6 MMOL/L (8-16); BLOOD UREA NITROGEN 16 mg/dL (7-18); CALCIUM 8.2 mg/dL (8.5-10.1); CHLORIDE 105 mmol/L (98-107); CO2 26 mmol/L (21-32); CREATININE 0.8 mg/dL (0.55-1.3); GLUCOSE,RANDOM 106 mg/dL (74-106); MAGNESIUM 2.3 mg/dL (1.8-2.4); PHOSPHOROUS 2.8 mg/dL (2.5-4.9); POTASSIUM 4.1 mmol/L (3.5-5.1); SODIUM 137 mmol/L (136-145)
--- NOTE | 2018-10-29 08:20 | PN ---
Progress Note (short form) - Note Progress Note: POD 1, s/p laparoscopic cholecystectomy Pt seen and examined this morning. States he is feeling well. Has been oob to the restroom multiple times without issue. Tolerated clears last night. Reports some difficulty controlling his urine due to abdominal pressure. Passing flatus. Denies cp/sob, n/v/d, calf pain/edema. Vital Signs Temp 98.1 F 10/29/18 06:00 Pulse 79 10/29/18 06:00 Resp 18 10/29/18 06:00 BP 144/95 10/29/18 06:00 Pulse Ox 95 10/28/18 20:44 Intake & Output 10/28/18 10/28/18 10/29/18 11:59 23:59 11:59 Intake Total 2000 1500 Output Total 100 950 340 Balance 1900 550 -340 Intake: IV 2000 1300 D5-1/2NS+40 MEQ KCL - 40 1000 meq In 1,000 ml @ 75 mls/ hr IV ASDIR JUAN MANUEL Rx#: [id number] Normal Saline - 1,000 ml 1000 @ 100 mls/hr IV ASDIR JUAN MANUEL Rx#:[id number] Oral 200 Output: Drainage 650 40 Right Abdomen 50 40 Urine 300 300 Void 300 300 Estimated Blood Loss 100 Other: Voiding Method Toilet Urinal # Unmeasured Voids Void 1 Bowel Movement No Yes # Bowel Movements 1 CBC, BMP 10/29/18 06:30 10/29/18 06:30 Gen: awake, alert, nad Resp: cta b/l CV: rrr, s1s2 Abdo: soft, nondistended, minimal ttp around incision sites. Dressings c/d/i. Drain dressing saturated, changed to new 4x4 and ABD. ABDELRAHMAN stripped, minimal serosanguinous drainage in reservoir. A/P: 68 y/o M w/ PMHx htn, hld, now admitted 10/26 for epigastric pain found to have acute cholecystitis/cholelithiasis, now POD 1, s/p laparoscopic cholecystectomy. Doing well this AM. Pain controlled. Has been oob without issue. Afebrile, VSS. Leukocytosis down trending. ABDELRAHMAN output 40ml overnight. Measure and record Abdelrahman output Diet advanced to low fat OOB ad aidan Monitor VS Incentive spirometer encouraged DVT prevention with b/l SCDS Pain control with acetaminophen 650mg q4hrs, oxy 5/10mg q4hrs, Morphine 2mg q4hrs prn BTP IV abx d/c'ed Home meds restarted as appropriate D/c pending attending wilson above d/w attending Dr Hdez
[2018-10-29] MEDS ORDERED: CEFTRIAXONE 1 GM in DEXTROSE 5%-WATER - 50 ML IVPB SCH (10:00)
[2018-10-29] MEDS ORDERED: NEBIVOLOL 10 MG TABLET (FP) PO SCH (10:00)
[2018-10-29] MEDS ORDERED: cefTRIAXone SODIUM 1 GM VIAL ONE (10:19)
[2018-10-29] MEDS ORDERED: DEXTROSE 5%-WATER - 50 ML IVPB ONE (10:20)
[2018-10-29] MEDS ORDERED: INSULIN (LEVEMIR) 100 UNITS/ML UNITS SQ ONE (10:21)
--- NOTE | 2018-10-29 14:45 | PN ---
Progress Note (short form) - Note Progress Note: Surgery RAULITO drain removal RAULITO drain removed from patient's right lower quadrant with tip fully intact. Some mild erythema surrounding skin around drain consistent with irritation from tape/adhesive. RAULITO bulb with SS discharge in bulb. No active d/c from drain site. Clean pressure dressing applied. Patient tolerated the patient well and was cleared by the surgical team to go home. He has been tolerating his diet and denies any new symptoms, feels well and wants to go home.
--- NOTE | 2018-10-29 14:49 | PATH ---
Surgical Pathology Report Patient Name: TONIA ROSE Med. Rec. #: [id number] /Age/Gender: 1950 (Age: 68) / M Account: [id number] Location: [facility] MED/SURG Taken: 10/28/2018 Received: 10/28/2018 Reported: 10/29/2018 Physicians: Jean Grayson M.D. Specimen(s) Received GALLBLADDER Clinical History Cholecystitis Final Diagnosis GALLBLADDER, CHOLECYSTECTOMY: SEVERE ACUTE CHOLECYSTITIS WITH HEMORRHAGE AND EPITHELIAL EROSION. CHOLELITHIASIS. Electronically Signed Chavo Lee M.D. Gross Description Received in formalin, labeled "gallbladder," is a 12.0 x 4.3 x 3.3 cm. gallbladder with a 0.2 cm. in length portion of cystic duct attached. The outer surface is ronquillo-red with a focal defect and varies from smooth to shaggy. The lumen contains red blood as well as 2 yellow-brown, irregular choleliths measuring 2.2 and 2.5 cm in greatest dimension. The mucosa is hyperemic. The wall of the gallbladder averages 0.4 cm. in thickness. [employer]ice sections are submitted in one cassette. /10/28/2018 saudi10/28/2018
--- NOTE | 2018-10-29 15:30 | DS ---
"Physical Exam: SUBJECTIVE: Patient seen and examined by me at bedside. No acute events overnight. Patient tolerating PO well (+) Flatus but no bowel movement Reports adequate pain control with Tylenol Reports feeling much better and would like to go home Otherwise, denies any fever, chills, nausea, vomiting, chest pain, palpitations , shortness of breath, headaches, dizziness, dysuria. OBJECTIVE: Vital Signs Period Temp Pulse Resp BP Sys/Breen Pulse Ox Last 24 Hr 98.1 F-98.8 F 79-91 16-18 139-146/95-96 95-98 PHYSICAL EXAM GENERAL: The patient is awake, alert, and fully oriented, in no acute distress. EYES: PERRL, sclera anicteric, conjunctiva clear. ENT: Moist mucous membranes. LUNGS: CTA b/l with no wheezes, no crackles, no accessory muscle use. HEART: Regular rate and rhythm, normal S1 and S2 without murmur, rub or gallop. ABDOMEN: Soft, mild tenderness upon palpation of RUQ with mild distention, normoactive bowel sounds, no guarding, no rebound. EXTREMITIES: No edema. NEUROLOGICAL: Cranial nerves II through XII grossly intact. Normal speech, normal gait. PSYCH: Normal mood, normal affect. SKIN: Warm, dry, normal turgor, no rashes or lesions noted. LABS Laboratory Results - last 24 hr 10/29/18 10/29/18 06:30 06:30 WBC 10.5 H RBC 4.29 Hgb 12.9 Hct 36.9 MCV 86.2 MCH 30.0 MCHC 34.8 RDW 12.5 Plt Count 179 MPV 10.0 Absolute Neuts (auto) 9.3 H Neutrophils % 88.9 H Lymphocytes % 4.0 L D Monocytes % 7.0 Eosinophils % 0.0 D Basophils % 0.1 Nucleated RBC % 0 Sodium 137 Potassium 4.1 Chloride 105 Carbon Dioxide 26 Anion Gap 6 L BUN 16 Creatinine 0.8 Creat Clearance w eGFR > 60 Random Glucose 106 Calcium 8.2 L Phosphorus 2.8 Magnesium 2.3 PRE-HOSPITAL COURSE: Patient is a 68 year old male with a PMHx of HTN and HLD who presented for several days of abdominal pain associated with nausea and anorexia. In the ED patients labs revealed leukocytosis with elevated bili. CT/US done and revealed GB wall thickening, concerning for cholecystitis. Patient was started on IV Abx with possible cholecystectomy and admitted for further evaluation and management. HOSPITAL COURSE: Throughout hospitalization, patient was taken to the OR by Dr. Hdez for cholecystectomy (10/28/18) with RAULITO drain placed. Patient tolerated procedure well with no complications or complaints. RAULITO Drain remained for 24 hours with no high output. Patient continued IV antibiotics, tolerated PO and (+) flatus. RAULITO drain was removed and patient was cleared by surgery for discharge. Patient medically cleared for discharge and will be discharged with Augmentin for one week. Date of Admission:10/26/18 Date of Discharge: 10/29/18 Minutes to complete discharge: 45 Discharge Summary Reason For Visit: CHOLECYSTITIS Current Active Problems Cholecystitis (Acute) HLD (hyperlipidemia) (Acute) HTN (hypertension) (Acute) Condition: Stable - Instructions Diet, Activity, Other Instructions: Dr. Hdez Discharge Instructions Dear TONIA ROSE, Post Operative Instructions Physical activity Resume your normal everyday activity as tolerated no heavy lifting or exercise until seen by your surgeon. You may walk unlimited amounts of and climb stairs. You may resume driving the car when you feel safe and comfortable behind the wheel. Wound care If you have a bandage, leave it on, and keep dry for 48 hours. After that time discard the outer bandage. If there are tapes on the skin under the outer bandage, leave them in place. They will peel off in the next 7 to 10 days. Do Not peel them off. You may shower 2 days after surgery (only if drain is out) but do not submerge the incisions. If there are tapes present on the skin, they can get wet. Do not apply lotion or ointments. Diet There are no dietary restrictions. Eat healthy, high-fiber foods. Drink 6 to 8 glasses of liquid each day. This will assist in keeping your bowels are regular. Pain management You may take Tylenol or acetaminophen or Ibuprofen (for example, Motrin, Advil etc.) Any pain prescription medication ordered should be taken as prescribed for moderate to severe pain. Call Dr. Hdez for any of the following: Severe pain not relieved by medication Fever of 101 or higher Excessive bleeding or drainage on dressing Inability to urinate If you experience any chest pain or shortness of breath please seek emergency treatment immediately. Call the office at [phone] for a post operative appointment in 7 - 10 days. [place] Prescription Monitoring Program report was requested by: Cici Albrecht | Reference #: [id number] MEDICATIONS: -You will be sent home with an antibiotic called Augmentin that you will be taking for a week. Please pick it up from your pharmacy Referrals: Real Bucio MD [Primary Care Provider] - Disposition: HOME - Home Medications Comprehensive Discharge Medication List: Ambulatory Orders Nebivolol HCl [Bystolic] 10 mg PO DAILY 10/26/18 Simvastatin 5 mg PO DAILY 10/26/18 Amox-Tr/K Cl [Augmentin - 875Mg Tablet] 1 tab PO BID #14 tablet 10/29/18 This patient is new to me today: Yes Date on this admission: 10/29/18 Emergency Visit: Yes ED Registration Date: 10/26/18 Care time: The patient presented to the Emergency Department on the above date and was hospitalized for further evaluation of their emergent condition. Critical Care patient: No - Discharge Referral Referred to [facility] No"
[2018-10-29 15:32] VITALS: BP 148/78; PULSE 78; TEMP 98.2
[2018-10-29] MEDS ORDERED: ATORVASTATIN CA 10 MG TABLET (FP) PO SCH (22:00)
== END 2018-10-29 18:05 | disposition home or self-care (01) | DRG 419 ==
LOC: JER 13:26 → JERBED 19:17 → J8W 23:38
PROVIDERS: ADMIT Internal Medicine; ATTEND Internal Medicine
PROC: 0FT44ZZ Resection of Gallbladder, Percutaneous Endoscopic Approach (ICD-10-PCS; principal; 2018-10-28 20:00)
DX: K80.12 Calculus of gallbladder with acute and chronic cholecystitis without obstruction (principal); E78.5 Hyperlipidemia, unspecified; I10 Essential (primary) hypertension; R10.11 Right upper quadrant pain; D72.829 Elevated white blood cell count, unspecified
CPT/HCPCS: 36415; 71046-TC-FY; 74177-TC; 76705-TC; 80048; 80053; 81003; 81015; 83690; 83735; 84100; 84484; 85025; 85027; 85610; 88304-TC; 93005; 93010; 94760; 97116-GP; 99283-25; J0131; J7030